=== PATIENT | male | born 1995 ===

== ENCOUNTER 2022-05-01 11:12 | Emergency (ER) | payer BC, OTHER ==
[2022-05-01] MEDS ORDERED: cefTRIAXone 1 GM, Lidocaine 1% 2.1 ML IM ONE ×2 (11:34)
[2022-05-01] MEDS ORDERED: Triamcinolone Acetonide 40 MG/ML 1 ML SDV IM ONE (11:34)
== END 2022-05-01 12:00 | disposition home or self-care (01) ==
LOC: EDSEX 11:12 → DL.ED 11:12
DX: J01.80 Other acute sinusitis (principal); B96.89 Other specified bacterial agents as the cause of diseases classified elsewhere; Z88.0 Allergy status to penicillin; Z79.899 Other long term (current) drug therapy
CPT/HCPCS: 93005; 96372; 99284; J0696; J3301; J3490